=== PATIENT | male | born 1965 | race Caucasian/White ===

== ENCOUNTER → 2019-08-16 | Day surgery (SDC) | payer OTHER ==
--- NOTE | 2019-08-13 17:19 | Diagnostic Imaging Report ---
EXAMINATION: PA and lateral views of the chest. COMPARISON: None CLINICAL HISTORY: Lumbar surgery DISCUSSION: Lines/tubes: None. Lungs: The lungs are well inflated and clear. There is no evidence of pneumonia or pulmonary edema. Pleura: There is no pleural effusion or pneumothorax. Heart and mediastinum: Cardiomediastinal silhouette is unremarkable. Pulmonary vasculature is normal. Bones and soft tissues: No acute bony abnormalities. Old healed right rib fractures. IMPRESSION: No acute cardiopulmonary abnormalities. Signed by: Dr. Chris Samuel M.D. on 08/13/2019 5:15 PM
[2019-08-13 17:28] LABS: BASOPHILS % 0.5 % (0.0-1.0); EOSINOPHILS # (AUTO) 0.1 (0.0-0.4); EOSINOPHILS % 0.9 % (0.0-6.0); HEMATOCRIT 42.8 % (38.2-49.6); HEMOGLOBIN 14.6 g/dL (14.0-18.0); LYMPHOCYTES # (AUTO) 2.1 (1.0-3.2); LYMPHOCYTES % 24.4 % (18.0-39.1); MEAN CORPUSCULAR HEMOGLOBIN 31.2 pg (28-32); MEAN CORPUSCULAR HGB CONC 34.1 g/dL (31-35); MEAN CORPUSCULAR VOLUME 91.5 fL (81-99); MONOCYTES # (AUTO) 0.8 (0.2-0.8); MONOCYTES % 8.8 % (4.4-11.3); NEUTROPHILS # (AUTO) 5.7 (2.1-6.9); NEUTROPHILS % 64.8 % (38.7-80.0); PLATELET COUNT 274 x10e3/uL (140-360); RED BLOOD COUNT 4.68 x10e6/uL (4.3-5.7); RED CELL DISTRIBUTION WIDTH 13.4 % (11.7-14.4)
[2019-08-13 17:45] LABS: ANION GAP 15.5 mmol/L (8-16); BLOOD UREA NITROGEN 10 mg/dL (7-26); BUN/CREATININE RATIO 11 (6-25); CARBON DIOXIDE 25 mmol/L (22-29); CHLORIDE 95 mmol/L (98-107); CREATININE, SERUM 0.91 mg/dL (0.72-1.25); EST GLOMERULAR FILTRATION RATE > 60 ML/MIN (60-); GLUCOSE 97 mg/dL (74-118); POTASSIUM 4.5 mmol/L (3.5-5.1); SODIUM 131 mmol/L (136-145)
[2019-08-13 19:14] LABS: INR 0.81; PARTIAL THROMBOPLASTIN TIME 22.7 seconds (23.8-35.5); PROTHROMBIN TIME 11.7 seconds (11.9-14.5)
[~2019-08-16] MED LIST: ACETAMINOPHEN 1000 MG/100 ML 100 ML IV ONE; ACETAMINOPHEN 325 MG TAB PO PRN; ADVIL200 M1 PO; ALLOPURINOL 300 MG TAB PO SCH; ALLOPURINOL300 MG PO; ASPIRIN325 MG PO; ATORVASTATIN 10 MG TAB PO SCH; ATORVASTATIN CA10 MG PO; BACITRACIN 50,000 UNIT VIAL ONE; BUPIVACAINE 0.25%/EPI 30ML SDV INJ ONE; CANDESARTAN CILEXETIL 16 MG TAB PO SCH; CANDESARTAN-HC1 EACH PO; CARISOPRODOL 350 MG TAB PO PRN; CEFAZOLIN SOD 1 GM/NS 50ML 100 ML IV ONE; CEFAZOLIN SOD 1 GM/NS 50ML 50 ML IV SCH; CEPACOL SORE THROAT LOZENGES PO PRN; DEXAMETHASONE SOD PHOS INJ 4 MG/ML VIAL ONE; FENTANYL CITRATE/PF 100MCG/2 ML INJ ONE; GABAPENTIN 300 MG CAP PO SCH; GABAPENTIN300 MG PO; GLYCOPYRROLATE INJ 0.2 MG/ML VIAL ONE; HYDROCHLOROTHIA25 MG; HYDROCHLOROTHIAZIDE 25 MG TAB PO SCH; HYDROCODONE/APAP 7.5MG-325MG 1 EA TAB ONE; HYDROMORPHONE 2MG/ML 2 MG/ML ML IV PRN; IBUPROFEN 800MG/ 200ML 200 ML IV ONE; IRBESARTAN150 MG PO; LACTATED RINGER'S 1,000 ML IV SCH; LIDOCAINE HCL (LTA) 4 ML SOLN ONE; LIDOCAINE HCL 2% JELLY 5 ML TUBE ONE; LIDOCAINE HCL 2% LOCAL INJ 5 ML SDV VIAL INJ ONE; MAGNESIUM/ALUMINUM/SIMETHICONE 30 ML UDC PO PRN; MIDAZOLAM HCL 2 MG/2 ML VIAL ONE; MORPHINE SULFATE 5 MG/ML VIAL IM PRN; NEOSTIGMINE 1 MG/ML 10ML VIAL ONE; ONDANSETRON HCL INJ 2MG/ML 2ML 2 MG/ML VIAL IV PRN; ONDANSETRON HCL INJ 2MG/ML 2ML 2 MG/ML VIAL ONE; OXYCODONE/ACETAMINOPHEN 5-325 1 EACH TABLET PO PRN; PROMETHAZINE HCL (IM) 25 MG/ML VIAL IM PRN; PROPOFOL IV EMULSION 10 MG/ML 20 ML VIAL ONE; ROCURONIUM BROMIDE 10 MG/ML 5ML VIAL IV ONE; SEVOFLURANE INHAL SOLN 250 ML PEN BTL ONE; SUCCINYLCHOLINE CHLORIDE 20 MG/ML 10ML VIAL ONE; THROMBIN FOR SOLN 5,000 UNIT VIAL ONE; TRAMADOL HCL 50 MG TAB PO PRN; ULTRAM50 MG PO; VITAMIN D PO; ZOLPIDEM TARTRATE 5 MG TAB PO PRN
[2019-08-16 10:45] VITALS: BP 172/94
--- NOTE | 2019-08-16 12:59 | Operative Report ---
DATE OF PROCEDURE: 08/16/2019 SURGEON: Jono Angel MD PREOPERATIVE DIAGNOSIS: Right L3-4 foraminal disk herniation with radiculopathy, M51.16. POSTOPERATIVE DIAGNOSIS: Right L3-4 foraminal disk herniation with radiculopathy, M51.16. PROCEDURE: Right L3-4 lateral foraminotomy and microsurgical diskectomy, 44812. ANESTHESIA: General. INDICATIONS: The patient is a 54-year-old man, who presents with a lateral foraminal and extraforaminal disk herniation at L3-4 on the right affecting the exiting right L3 nerve root with severe intractable radiculopathy. He was taken to surgery for microsurgical diskectomy through a lateral paramedian approach. PROCEDURE IN DETAIL: After induction of general anesthesia, the patient was placed on the operating table in prone position on Jony frame. Lumbar region was prepped and draped in sterile fashion. A preoperative x-ray was obtained. A small paramedian incision was created over the L3-4 interspace on the right side. The lumbar fascia was opened to the right of midline and dissection was carried out to expose the right side of the L3 lamina and the pars interarticularis of L3 hip. A second x-ray confirmed correct localization below the L3 pedicle. The operating microscope was brought in. Retraction was maintained with the expandable Aesculap retractor. Under microscope, a high-speed drill equipped with a 4 mm irma bur was used to drill the lateral margin of the pars interarticularis of L3 and the superolateral margin of the inferior articular process of L3. The lateral extension of ligamentum flavum over the L3 neural foramen was resected and the L3 nerve root was exposed under the L3 pedicle. The epidural veins inferior to the nerve root were bipolar coagulated, divided, micro sutures and underlying disk herniation came into view under the L3 nerve root, markedly compressing the nerve root. The herniated disk material was mobilized with a micro ball probe and grasped with a micro pituitary rongeur and removed the several fragments of disk until the L3 nerve root was fully decompressed. The ball-tip probe was then passed laterally into the extraforaminal space and used to retrieve another fragment of herniated disk, which was removed. Meticulous hemostasis was secured. Excellent decompression of the nerve roots had been achieved. The wound was irrigated with bacitracin solution and closed in multiple layers with 0 and 2-0 Vicryl sutures and 3-0 Monocryl sutures for the subcuticular layer. Steri-Strips and dressing were applied. The patient was awakened, extubated, and taken to postanesthesia care unit in stable condition. No intraoperative complications were encountered. ESTIMATED BLOOD LOSS: 10 mL. Jono Angel MD PP/ALEX /[id number]
== END | disposition home or self-care (01) ==
LOC: OR 05:36
PROVIDERS: ATTEND Neurological Surgery
DX: M51.26 Other intervertebral disc displacement, lumbar region (principal); M54.16 Radiculopathy, lumbar region; I10 Essential (primary) hypertension; R53.1 Weakness; E78.5 Hyperlipidemia, unspecified; F17.210 Nicotine dependence, cigarettes, uncomplicated; Z01.810 Encounter for preprocedural cardiovascular examination; Z01.812 Encounter for preprocedural laboratory examination; Z11.59 Encounter for screening for other viral diseases; Z79.82 Long term (current) use of aspirin
CPT/HCPCS: 36415; 63030; 71046; 72020; 80048; 85025; 85610; 85730; 86850; 86900; 87635; 88304; 93005; J0131; J0330; J0690; J1100; J2001 ×2; J2250; J2405; J2704; J2710; J3010